=== PATIENT | male | born 1955 | race Caucasian/White ===

== ENCOUNTER 2020-02-21 06:15 | Day surgery (SDC) | payer MEDICARE, BC ==
[~2020-02-21] VITALS: Ht 195.6 cm; Wt 100.5 kg
[2020-02-21] VITALS (8 sets, daily range): BP systolic 103–125; BP diastolic 54–69
[2020-02-21] MEDS ORDERED: albumin 25% 100mL bottle x 1 IV PRN (06:50)
[2020-02-21] MEDS ORDERED: SPIR100T5 PO (06:53)
[2020-02-21] MEDS ORDERED: LISI10TA4 PO (06:54)
[2020-02-21] MEDS ORDERED: IBUP-1985 PO (06:55)
[2020-02-21] MEDS ORDERED: TRAM50TA2 PO (06:56)
[2020-02-21] MEDS ORDERED: CYCL-394 PO (06:56)
[2020-02-21] MEDS ORDERED: LEVO75TA PO (06:57)
[2020-02-21] MEDS ORDERED: DEXL60CA3 PO (07:00)
[2020-02-21] MEDS ORDERED: FURO-150 PO (07:01)
[2020-02-21] MEDS ORDERED: MAGN400T39 PO (07:02)
[2020-02-21] MEDS ORDERED: LACT10SO PO (07:03)
[2020-02-21] MEDS ORDERED: RIFA550T PO (07:03)
[2020-02-21] MEDS ORDERED: INSU300I SQ (07:04)
[2020-02-21 10:21] LABS: ALBUMIN,BODY FLUID < 0.6 G/DL; LYMPHOCYTES,BODY FLUID 42 %; MONOCYTES,BODY FLUID 56 %; NEUTROPHILS,BODY FLUID 2 %; TOTAL PROTEIN,BODY FLUID < 2.0 G/DL
[2020-02-21 10:22] LABS: BF MESOTHELIAL CELLS FEW; BF RBC COUNT 75 /CU MM; BF WBC COUNT 154 /CU MM (0-1000); BFAPPEAR HAZY; BFCOLOR YELLOW; BFVOLUME 60 ML
== END 2020-02-21 09:57 | disposition home or self-care (01) ==
LOC: SSTAY O 06:15
PROVIDERS: ATTEND Radiology Vascular & Interventional Radiology
DX: R18.8 Other ascites (principal); K74.60 Unspecified cirrhosis of liver; Z85.51 Personal history of malignant neoplasm of bladder; Z90.49 Acquired absence of other specified parts of digestive tract; Z79.899 Other long term (current) drug therapy
CPT/HCPCS: 49083; 82042; 84157; 87070; 87075; 89051; P9047

== ENCOUNTER 2020-04-03 06:38 | Day surgery (SDC) | payer MEDICARE, BC ==
[~2020-04-03] VITALS: Ht 195.6 cm; Wt 94.4 kg
[2020-04-03] VITALS (8 sets, daily range): BP systolic 71–109; BP diastolic 38–67
[~2020-04-03 06:38] MED LIST: CYCL-394 PO; DEXL60CA3 PO; FURO-150 PO; IBUP-1985 PO; INSU300I SQ; LACT10SO PO; LEVO75TA PO; LISI10TA4 PO; MAGN400T39 PO; RIFA550T PO; SPIR100T5 PO; TRAM50TA2 PO
[2020-04-03] MEDS ORDERED: albumin 25% 100mL bottle x 1 IV PRN (07:20)
[2020-04-03] MEDS ORDERED: LACT1CAP75 PO (07:24)
[2020-04-03] MEDS ORDERED: PANT-47 PO (07:25)
[2020-04-03] MEDS ORDERED: LEVO75TA PO (07:26)
[2020-04-03] MEDS ORDERED: ALBU8HFA PO (07:33)
--- NOTE | 2020-04-03 08:45 | NUR ---
Verbal order of normal saline bolus of 250mL received from Kenneth HAWTHORNE at bedside.
== END 2020-04-03 10:10 | disposition home or self-care (01) ==
LOC: SSTAY O 06:38
PROVIDERS: ATTEND Radiology Diagnostic Radiology
DX: R18.8 Other ascites (principal); K74.60 Unspecified cirrhosis of liver; Z85.51 Personal history of malignant neoplasm of bladder; Z90.49 Acquired absence of other specified parts of digestive tract; Z79.899 Other long term (current) drug therapy
CPT/HCPCS: 49083; P9047